=== PATIENT | male | born 1950 | race Caucasian/White ===

== ENCOUNTER → 2024-01-25 18:08 | Outpatient (REF) | payer MEDICARE, SELFPAY | LOC: MRI 3T 18:08 | PROVIDERS: ATTENDING PHYSICIAN Urology; FAMILY PHYSICIAN Internal Medicine | DX: R97.20 Elevated prostate specific antigen [PSA] (principal) | CPT/HCPCS: 72197; A9575 ==

== ENCOUNTER → 2024-02-08 14:52 | Outpatient (REF) | payer MEDICARE, SELFPAY | LOC: CLAB 14:52 | PROVIDERS: ATTENDING PHYSICIAN Urology | DX: R97.20 Elevated prostate specific antigen [PSA] (principal) | CPT/HCPCS: 88305 ==

== ENCOUNTER → 2024-04-19 08:15 | Outpatient (REF) | payer MEDICARE, SELFPAY ==
[2024-04-19 11:21] LABS: PSA, Total - Diagnostic 6.96 ng/ml (0.0-4.0)
== END ==
LOC: REG 08:15
PROVIDERS: ATTENDING PHYSICIAN Radiology Radiation Oncology; FAMILY PHYSICIAN Internal Medicine; OTHER PHYSICIAN Physical Medicine & Rehabilitation; REFERRING PHYSICIAN Urology
DX: C61 Malignant neoplasm of prostate (principal)
CPT/HCPCS: 36415; 84153; 84403

== ENCOUNTER → 2024-05-26 08:15 | Outpatient (REF) | payer MEDICARE, SELFPAY ==
[2024-05-26 09:54] LABS: Testosterone, Total 25.7 ng/dl (72-623)
== END ==
LOC: REG 08:15
PROVIDERS: ATTENDING PHYSICIAN Urology; FAMILY PHYSICIAN Internal Medicine
DX: R97.20 Elevated prostate specific antigen [PSA] (principal); C61 Malignant neoplasm of prostate
CPT/HCPCS: 36415; 84403

== ENCOUNTER → 2024-09-15 08:29 | Outpatient (REF) | payer MEDICARE, SELFPAY ==
[2024-09-15 10:13] LABS: PSA, Total - Diagnostic < 0.06 ng/ml (0.0-4.0)
== END ==
LOC: REG 08:29
PROVIDERS: ATTENDING PHYSICIAN Radiology Radiation Oncology; FAMILY PHYSICIAN Internal Medicine; OTHER PHYSICIAN Physical Medicine & Rehabilitation; OTHER PHYSICIAN Urology; REFERRING PHYSICIAN Radiology Radiation Oncology
DX: C61 Malignant neoplasm of prostate (principal)
CPT/HCPCS: 36415; 84153

== ENCOUNTER → 2024-10-06 08:26 | Outpatient (REF) | payer MEDICARE, SELFPAY ==
[2024-10-06 10:33] LABS: % Basophils 0.6 % (0-2); % Eosinophils 1.6 % (0-6); % Immature Granulocytes 0.3 % (0-0.5); % Lymphocytes 12.9 % (20.5-51.1); % Monocytes 13.5 % (1.7-9.3); % Neutrophils 71.1 % (42.2-75.2); Absolute Eosinophils 0.1 10^3/uL (0-0.7); Absolute Lymphocytes 0.4 10^3/uL (1.2-3.4); Absolute Monocytes 0.4 10^3/uL (0.1-0.6); Absolute Neutrophils 2.3 10^3/uL (1.4-6.5); Hematocrit 36.1 % (39.0-52.0); Mean Corp Hgb Conc. 33.2 g/dL (33.0-37.0); Mean Corpuscular Hgb 30.9 pg (27.0-31.0); Nucleated Red Blood Cells % 0 % (-); Platelet Count 204 10^3/uL (130-400); Red Blood Cell Count 3.88 10^6/uL (4.70-6.10); Red Cell Dist. Width 12.5 % (11.5-14.5); White Blood Cell Count 3.2 10^3/uL (4.8-10.8)
[2024-10-06 10:34] LABS: Urine Albumin Negative (Neg - Trace); Urine Bilirubin Negative (Negative); Urine Character Clear (Clear); Urine Color Yellow; Urine Glucose Negative (Negative); Urine Ketone Negative (Negative); Urine Leukocyte Negative (Negative); Urine Nitrite Negative (Negative); Urine Occult Blood Negative (Negative); Urine Urobilinogen Negative (Neg - 1+)
[2024-10-06 10:55] LABS: Glycohemoglobin (HgbA1c) 5.7 % (4.0-5.6)
[2024-10-06 11:15] LABS: ALT (SGPT) 17 U/L (0-50); AST (SGOT) 45 U/L (17-59); Albumin 3.9 g/dl (3.5-5.0); Alkaline Phosphatase 49 U/L (38-126); Blood Urea Nitrogen 21 mg/dl (9-20); Calcium 8.7 mg/dl (8.4-10.2); Carbon Dioxide 27 mmol/L (22-30); Chloride 102 mmol/L (98-107); Glucose 93 mg/dl (70-99); HDL Cholesterol 92 mg/dl; LDL Cholesterol, Calculated 101 mg/dl; Potassium 4.6 mmol/L (3.5-5.1); Sodium 138 mmol/L (135-145); Total Bilirubin 0.6 mg/dl (0.2-1.3); Total Cholesterol 208 mg/dl (50-199); Total Protein 6.3 g/dl (6.3-8.2); Triglyceride 75 mg/dl (10-149); Very Low Density Lipoprotein 15 mg/dl (0-30); eGFR > 60.00
== END ==
LOC: REG 08:26
PROVIDERS: ATTENDING PHYSICIAN Internal Medicine; REFERRING PHYSICIAN Urology
DX: Z00.00 Encounter for general adult medical examination without abnormal findings (principal); N31.9 Neuromuscular dysfunction of bladder, unspecified; E78.5 Hyperlipidemia, unspecified; R73.03 Prediabetes; N40.1 Benign prostatic hyperplasia with lower urinary tract symptoms; Z87.828 Personal history of other (healed) physical injury and trauma
CPT/HCPCS: 36415; 80053; 80061; 81003; 83036; 85025

== ENCOUNTER → 2024-10-30 08:20 | Outpatient (REF) | payer MEDICARE, SELFPAY ==
[2024-10-30 19:10] LABS: Testosterone, Total 11.9 ng/dl (72-623)
== END ==
LOC: REG 08:20
PROVIDERS: ATTENDING PHYSICIAN Urology
DX: R97.20 Elevated prostate specific antigen [PSA] (principal); C61 Malignant neoplasm of prostate
CPT/HCPCS: 36415; 84403

== ENCOUNTER → 2024-11-09 11:16 | Outpatient (REF) | payer MEDICARE, SELFPAY ==
[2024-11-09 13:35] LABS: HDL Cholesterol 90 mg/dl; LDL Cholesterol, Calculated 92 mg/dl; Total Cholesterol 198 mg/dl (50-199); Triglyceride 80 mg/dl (10-149); Very Low Density Lipoprotein 16 mg/dl (0-30)
== END ==
LOC: REG 11:16
PROVIDERS: ATTENDING PHYSICIAN Internal Medicine
DX: Z00.00 Encounter for general adult medical examination without abnormal findings (principal); N31.9 Neuromuscular dysfunction of bladder, unspecified; E78.5 Hyperlipidemia, unspecified; R73.03 Prediabetes; N40.1 Benign prostatic hyperplasia with lower urinary tract symptoms; Z87.828 Personal history of other (healed) physical injury and trauma
CPT/HCPCS: 36415; 80061

== ENCOUNTER → 2024-11-14 11:02 | Outpatient (REF) | payer MEDICARE, SELFPAY ==
[2024-11-14 11:47] LABS: % Basophils 0.2 % (0-2); % Immature Granulocytes 0.3 % (0-0.5); % Lymphocytes 8.4 % (20.5-51.1); % Monocytes 9.6 % (1.7-9.3); % Neutrophils 80.5 % (42.2-75.2); Absolute Eosinophils 0.1 10^3/uL (0-0.7); Absolute Lymphocytes 0.5 10^3/uL (1.2-3.4); Absolute Monocytes 0.6 10^3/uL (0.1-0.6); Absolute Neutrophils 4.7 10^3/uL (1.4-6.5); Hematocrit 34.8 % (39.0-52.0); Hemoglobin 11.5 g/dL (13.0-18.0); Mean Corpuscular Hgb 30.5 pg (27.0-31.0); Mean Corpuscular Volume 92.3 fL (80.0-94.0); Mean Platelet Volume 11.1 fL (7.4-10.4); Nucleated Red Blood Cells % 0 % (-); Platelet Count 209 10^3/uL (130-400); Red Blood Cell Count 3.77 10^6/uL (4.70-6.10); White Blood Cell Count 5.8 10^3/uL (4.8-10.8)
[2024-11-14 12:54] LABS: Iron 112 ug/dl (49-181)
[2024-11-14 13:04] LABS: Percent Saturation 33 % (20-50); Total Iron Binding Capacity 339 ug/dl (261-462)
[2024-11-14 14:52] LABS: Ferritin 40.2 ng/ml (17.9-464.0)
== END ==
LOC: REG 11:02
PROVIDERS: ATTENDING PHYSICIAN Internal Medicine; OTHER PHYSICIAN Urology
DX: D64.9 Anemia, unspecified (principal)
CPT/HCPCS: 36415; 82728; 83540; 83550; 85025

== ENCOUNTER → 2025-01-01 11:58 | Outpatient (REF) | payer MEDICARE, SELFPAY ==
[2025-01-01 12:38] LABS: % Basophils 0.2 % (0-2); % Eosinophils 0.8 % (0-6); % Immature Granulocytes 0.5 % (0-0.5); % Lymphocytes 7.8 % (20.5-51.1); % Monocytes 9.8 % (1.7-9.3); % Neutrophils 80.9 % (42.2-75.2); Absolute Eosinophils 0.1 10^3/uL (0-0.7); Absolute Lymphocytes 0.5 10^3/uL (1.2-3.4); Absolute Monocytes 0.6 10^3/uL (0.1-0.6); Absolute Neutrophils 4.8 10^3/uL (1.4-6.5); Hematocrit 35.5 % (39.0-52.0); Hemoglobin 11.8 g/dL (13.0-18.0); Mean Corp Hgb Conc. 33.2 g/dL (33.0-37.0); Mean Corpuscular Hgb 30.8 pg (27.0-31.0); Mean Corpuscular Volume 92.7 fL (80.0-94.0); Mean Platelet Volume 11.4 fL (7.4-10.4); Nucleated Red Blood Cells % 0 % (-); Platelet Count 207 10^3/uL (130-400); Red Blood Cell Count 3.83 10^6/uL (4.70-6.10); Reticulocyte Count 1.7 % (0.4-2.8)
[2025-01-01 13:30] LABS: Erythrocyte Sed Rate 16 mm/hour (0-20)
== END ==
LOC: REG 11:58
PROVIDERS: ATTENDING PHYSICIAN Internal Medicine
DX: D64.9 Anemia, unspecified (principal)
CPT/HCPCS: 36415; 85025; 85045; 85652

== ENCOUNTER → 2025-02-08 11:06 | Outpatient (REF) | payer MEDICARE, SELFPAY ==
[2025-02-08 12:32] LABS: % Basophils 0.2 % (0-2); % Eosinophils 0.9 % (0-6); % Immature Granulocytes 0.2 % (0-0.5); % Lymphocytes 10.5 % (20.5-51.1); % Monocytes 11.4 % (1.7-9.3); % Neutrophils 76.8 % (42.2-75.2); Absolute Eosinophils 0.1 10^3/uL (0-0.7); Absolute Lymphocytes 0.6 10^3/uL (1.2-3.4); Absolute Monocytes 0.6 10^3/uL (0.1-0.6); Absolute Neutrophils 4.2 10^3/uL (1.4-6.5); Hemoglobin 11.6 g/dL (13.0-18.0); Mean Corp Hgb Conc. 34.1 g/dL (33.0-37.0); Mean Corpuscular Hgb 31.4 pg (27.0-31.0); Mean Corpuscular Volume 91.9 fL (80.0-94.0); Mean Platelet Volume 11.7 fL (7.4-10.4); Nucleated Red Blood Cells % 0 % (-); Platelet Count 198 10^3/uL (130-400); Red Cell Dist. Width 13.1 % (11.5-14.5); White Blood Cell Count 5.4 10^3/uL (4.8-10.8)
== END ==
LOC: REG 11:06
PROVIDERS: ATTENDING PHYSICIAN Internal Medicine; OTHER PHYSICIAN Urology
DX: D64.9 Anemia, unspecified (principal)
CPT/HCPCS: 36415; 85025

== ENCOUNTER → 2025-03-09 10:53 | Outpatient (REF) | payer MEDICARE, SELFPAY ==
[2025-03-09 13:23] LABS: PSA, Total - Diagnostic < 0.06 ng/ml (0.0-4.0)
== END ==
LOC: REG 10:53
PROVIDERS: ATTENDING PHYSICIAN Urology; FAMILY PHYSICIAN Internal Medicine
DX: R97.20 Elevated prostate specific antigen [PSA] (principal); C61 Malignant neoplasm of prostate
CPT/HCPCS: 36415; 84153

== ENCOUNTER 2025-03-20 16:36 | Inpatient (IN) | payer MEDICARE, SELFPAY ==
[2025-03-20] VITALS (11 sets, daily range): BP systolic 106–144; BP diastolic 73–103; BMI 26.3
[2025-03-20 13:00] LABS: % Basophils 0.3 % (0-2); % Eosinophils 1.4 % (0-6); % Immature Granulocytes 0.2 % (0-0.5); % Lymphocytes 13.1 % (20.5-51.1); % Monocytes 11.1 % (1.7-9.3); % Neutrophils 73.9 % (42.2-75.2); Absolute Eosinophils 0.1 10^3/uL (0-0.7); Absolute Lymphocytes 0.8 10^3/uL (1.2-3.4); Absolute Monocytes 0.6 10^3/uL (0.1-0.6); Absolute Neutrophils 4.3 10^3/uL (1.4-6.5); Hematocrit 41.5 % (39.0-52.0); Hemoglobin 13.9 g/dL (13.0-18.0); Mean Corp Hgb Conc. 33.5 g/dL (33.0-37.0); Mean Corpuscular Volume 92.4 fL (80.0-94.0); Mean Platelet Volume 11.2 fL (7.4-10.4); Nucleated Red Blood Cells % 0 % (-); Platelet Count 269 10^3/uL (130-400); Red Blood Cell Count 4.49 10^6/uL (4.70-6.10); Red Cell Dist. Width 12.8 % (11.5-14.5); White Blood Cell Count 5.8 10^3/uL (4.8-10.8)
--- NOTE | 2025-03-20 13:11 | ED.GENMED ---
History of Present Illness
<Albino Devlin PA-C - Last Filed: 03/20/25 16:07>
General
Chief Complaint: Heart Rate Problem
Source: patient
Exam Limitations: none
Time Seen by Provider: 03/20/25 13:07
History of Present Illness
History of Present Illness:
75-year-old male presents in referral from family doctor's office. He woke up this morning and his Fitbit alerted him of a fast heart rate. He went to the family doctor and I did an EKG and he was suspected to have SVT. He tried vagal maneuvers
prior to arrival and these were unsuccessful. Is never had this before. Patient has no chest pain or shortness of breath. He is not lightheaded. He is not anticoagulated. Of note patient did return 2 weeks ago from a trip to [facility] and
[facility].
Phy Exam
<Albino Devlin PA-C - Last Filed: 03/20/25 16:07>
Physical Exam
Physical Exam:
General: Well-appearing male no acute respiratory distress
HEENT: Normocephalic atraumatic heart: Tachycardic and regular
Lungs: Clear no wheeze
Extremities: Mild pitting edema bilateral lower extremities
Course
<Albino Devlin PA-C - Last Filed: 03/20/25 16:07>
Orders/Labs/Results
Orders:
Orders
03/20/25
Electrocardiogram (*1) Stat
Comment: DONE EMR
03/20/25 12:40
ECG [Electrocardiogram (*1)] Urgent
Reason for Study: Tachycardia
EKG- Treatment ONCE
03/20/25 12:49
Complete Blood Count/With Diff Urgent
Comprehensive Metabolic Panel Urgent
TSH Reflex To Free T4 Urgent
03/20/25 13:08
Adenosine [Adenocard] 6 mg IV NOW STA
03/20/25 13:24
Adenosine [Adenocard] 12 mg .ROUTE .STK-MED ONE
Adenosine [Adenocard] 12 mg IV NOW STA
03/20/25 13:27
Diltiazem HCl [Cardizem] 20 mg IV NOW STA
03/20/25 14:20
CT Chest PE Study Urgent
Comment:
Reason For Exam: tachycardia, recent travel
03/20/25 14:53
Metoprolol [Lopressor] 5 mg IV NOW STA
03/20/25 16:12
Diltiazem HCl [Cardizem] 20 mg IV NOW STA
03/20/25 16:15
Diltiazem 125 mg/125 ml Nss [Cardizem] 125 mg in 125 ml IV PER PROTOCOL
Initial dose in mg/hr, then titrate:: 5
Titrate to keep:: Heart rate 80-100 bpm
Titrate by mg/hr:: 5 mg/hr
Frequency of titrations (minutes):: 15
Maximum dose in mg/hr:: 15
Abnormal Lab Results
03/20/25
12:49
RBC 4.49 L 10^6/uL
(4.70-6.10)
MPV 11.2 H fL
(7.4-10.4)
Absolute Lymphs (auto) 0.8 L 10^3/uL
(1.2-3.4)
Lymphocytes % 13.1 L %
(20.5-51.1)
Monocytes % 11.1 H %
(1.7-9.3)
Glucose 113 H mg/dl
(70-99)
03/20/25 12:49
03/20/25 12:49
Vital Signs
Initial and Last Documented VS:
Initial Vital Signs
Temp Pulse Resp BP Pulse Ox
97.8 F 172 18 114/81 96
03/20/25 12:43 03/20/25 12:43 03/20/25 12:43 03/20/25 12:43 03/20/25 12:43
Last Documented Vital Signs
Temp Pulse Resp BP Pulse Ox
97.8 F 153 23 123/86 95
03/20/25 12:43 03/20/25 16:00 03/20/25 16:00 03/20/25 16:00 03/20/25 15:45
<Cynthia Stone, DO - Last Filed: 03/20/25 16:16>
Orders/Labs/Results
Orders:
Orders
03/20/25
Electrocardiogram (*1) Stat
Comment: DONE EMR
03/20/25 12:40
ECG [Electrocardiogram (*1)] Urgent
Reason for Study: Tachycardia
EKG- Treatment ONCE
03/20/25 12:49
Complete Blood Count/With Diff Urgent
Comprehensive Metabolic Panel Urgent
TSH Reflex To Free T4 Urgent
03/20/25 13:08
Adenosine [Adenocard] 6 mg IV NOW STA
03/20/25 13:24
Adenosine [Adenocard] 12 mg .ROUTE .STK-MED ONE
Adenosine [Adenocard] 12 mg IV NOW STA
03/20/25 13:27
Diltiazem HCl [Cardizem] 20 mg IV NOW STA
03/20/25 14:20
CT Chest PE Study Urgent
Comment:
Reason For Exam: tachycardia, recent travel
03/20/25 14:53
Metoprolol [Lopressor] 5 mg IV NOW STA
03/20/25 16:12
Diltiazem HCl [Cardizem] 20 mg IV NOW STA
03/20/25 16:15
Diltiazem 125 mg/125 ml Nss [Cardizem] 125 mg in 125 ml IV PER PROTOCOL
Initial dose in mg/hr, then titrate:: 5
Titrate to keep:: Heart rate 80-100 bpm
Titrate by mg/hr:: 5 mg/hr
Frequency of titrations (minutes):: 15
Maximum dose in mg/hr:: 15
Abnormal Lab Results
03/20/25
12:49
RBC 4.49 L 10^6/uL
(4.70-6.10)
MPV 11.2 H fL
(7.4-10.4)
Absolute Lymphs (auto) 0.8 L 10^3/uL
(1.2-3.4)
Lymphocytes % 13.1 L %
(20.5-51.1)
Monocytes % 11.1 H %
(1.7-9.3)
Glucose 113 H mg/dl
(70-99)
03/20/25 12:49
03/20/25 12:49
Vital Signs
Initial and Last Documented VS:
Initial Vital Signs
Temp Pulse Resp BP Pulse Ox
97.8 F 172 18 114/81 96
03/20/25 12:43 03/20/25 12:43 03/20/25 12:43 03/20/25 12:43 03/20/25 12:43
Last Documented Vital Signs
Temp Pulse Resp BP Pulse Ox
97.8 F 153 23 123/86 95
03/20/25 12:43 03/20/25 16:00 03/20/25 16:00 03/20/25 16:00 03/20/25 15:45
<Albino Devlin PA-C - Last Filed: 03/20/25 16:07>
MDM/Problems Addressed
Differential Diagnosis Includes:
Patient presents with rapid heart rate at home. EKG here consistent with a narrow complex regular tachycardia suspicious of SVT.
Blood pressure is stable he has no complaints otherwise. Will try adenosine.
<Albino Devlin PA-C - Last Filed: 03/20/25 16:07>
*Critical Care Note
Total Time (30-74mins, 75-104mins- exclusive of procedures): Not Applicable
<Cynthia Stone DO - Last Filed: 03/20/25 16:16>
*Critical Care Note
Total Time (30-74mins, 75-104mins- exclusive of procedures): 42
comment:
The high probability of a clinically significant, sudden or life threatening deterioration of the cardiac system(s) required my full and direct attention, intervention and personal management. The aggregate critical care time was 42 minutes. This
time is in addition to time spent performing reported procedures but includes the following:
[x] Data Review and interpretation
[x] Patient assessment and monitoring of vital signs
[x] Documentation
[x] Medication orders and management
<Albino Devlin PA-C - Last Filed: 03/20/25 16:07>
Update Note
Update Note:
Patient persistent bleed tachycardic here. He had dose of adenosine x 2 as well as diltiazem bolus was seen by cardiology, electrophysiology. PE study was negative. Suspect SVT versus atrial tachycardia. Will admit for diltiazem drip and further
evaluation
ED Attending Note
<Albino Devlin PA-C - Last Filed: 03/20/25 16:07>
-
Portions of this chart may have been created with voice recognition software.� Occasional wrong word or��sound alike� substitutions may have occurred due to the inherent limitations of voice recognition software.
<Cynthia Stone DO - Last Filed: 03/20/25 16:16>
ED Attending Note
Patient seen and examined by attending physician: Yes
I performed the substantive portion of visit, reviewed & personally made and approve the management plan that is documented in note by myself or CASEY.: Yes
I performed a history and physical exam of patient and discussed management with resident, I reviewed resident's note and agree with documented findings and plan of care.: Yes
ED Attending Note:
75-year-old male presenting from home for elevated heart rate. Patient wears a Fitbit and noticed on his Fitbit that his heart rate was in the 160s. Patient sent in by his primary care doctor. Patient is relatively asymptomatic without
palpitations, difficulty breathing. Denies any history of A-fib or irregular heart rhythms. Denies any associated dyspnea or chest pain. Denies fever or recent illness. Vital signs on arrival significant for tachycardia.
On exam patient is resting comfortably, no acute distress or discomfort. Heart rate does appear consistent with SVT, regular in the 160s, confirmed with EKG. Otherwise unremarkable cardiac and pulmonary exam. Plan for adenosine
13:30 - No success with adenosine x 2. Will trial Cardizem for possible underlying a flutter
14:00 -minimal improvement after Cardizem. In discussion with cardiology, will come evaluate. Patient did recently travel abroad and does have underlying history of prostate cancer, so we will also plan for PE study
16:00 -PE study negative. Cardiology recommending diltiazem drip and admission. Suspect atrial tachycardia
Discharge Plan
Departure
Patient Disposition: Admit
Date of Disposition: 03/20/25
Time of Disposition: 16:06
Presentation/result/management discussed w/ accepting MD/DO: Hospitalist
Discharge Problem:
Atrial tachycardia
Referrals:
Wilfredo Avila MD [Family Provider] -
Interventions
Interventions:
*Risk Screen - Suicide Last Done: 03/20/25 12:43
*General Assessment Last Done: 03/20/25 12:43
*Neglect/Abuse Screening Last Done: 03/20/25 12:43
*ED- Fall Risk Assessment Last Done: 03/20/25 12:58
*ED COVID-19 Vaccine History Last Done: 03/20/25 12:43
ED- Cardiac Assessment Last Done: 03/20/25 12:58
ED- Pulmonary Assessment Last Done: 03/20/25 12:58
Discharge Date and Time
Print Language: COMORAN
[2025-03-20 13:16] LABS: ALT (SGPT) 17 U/L (0-50); AST (SGOT) 34 U/L (17-59); Albumin 4.3 g/dl (3.5-5.0); Alkaline Phosphatase 67 U/L (38-126); Blood Urea Nitrogen 16 mg/dl (9-20); Calcium 9.5 mg/dl (8.4-10.2); Carbon Dioxide 25 mmol/L (22-30); Chloride 103 mmol/L (98-107); Estimated Creatinine Clearance 85 ml/min; Glucose 113 mg/dl (70-99); Potassium 4.8 mmol/L (3.5-5.1); Sodium 137 mmol/L (135-145); Total Bilirubin 0.7 mg/dl (0.2-1.3); Total Protein 6.8 g/dl (6.3-8.2); eGFR > 60.00
[2025-03-20] MEDS: ADENOCARD 6 MG IV (13:20)
[2025-03-20] MEDS: ADENOCARD 12 MG IV (13:24)
[2025-03-20] MEDS: CARDIZEM 20 MG IV ×2 (13:30→16:22)
[2025-03-20 13:47] LABS: TSH Reflex To Free T4 1.11 uIU/ml (0.47-4.68)
[2025-03-20] MEDS: LOPRESSOR 5 MG IV (15:12)
--- NOTE | 2025-03-20 15:14 | CON.CAR ---
Addendum entered and electronically signed by Luis Felipe Reyes MD 03/20/25 16:31:
I saw and examined the patient.
The SIGNAL FITTER's note was reviewed and I agree with the note.
Comment: 75-year-old male with prostate cancer (completed XRT on Lupron), chronic back pain, prediabetes, neurogenic bladder, and severe DOMO who presented to the emergency room with a chief complaint of elevated heart rate. He was given 6 mg of
adenosine with a short sinus pause and then went back into SVT. The same situation occurred after 12 mg. He was then given 20 mg of diltiazem without success. Cardiology was consulted.
Discussed with EP, Dr Britt, possible a tach recommended dilt gtt.
a tach
- dilt gtt
Original Note:
Consultation
Consultation Request
Date/Time Consultation Requested: 03/20/2025 14:05
Date/Time Consultation Performed: 12/20/2024 14:25
Requesting Provider: Albino Devlin PA-C
Performing Provider: SUSAN Tovar for Dr. Reyes
Reason for Consultation: SVT
Medical History
-
Chief Complaint: Elevated heart rate
History of Present Illness:
Dylan Tay is a 75-year-old male with prostate cancer (completed XRT on Lupron), chronic back pain, prediabetes, neurogenic bladder, and severe DOMO who presented to the emergency room with a chief complaint of elevated heart rate. He noticed his
heart rate was elevated on his Fitbit this morning. He was asymptomatic. He tried vagal maneuvers at home without success. He presented to the emergency room. He has been feeling well in his usual state of health. He recently returned from a
trip to [facility] for several weeks. He did have 1 day of GI illness but otherwise felt well on the trip. He was given 6 mg of adenosine with a short sinus pause and then went back into SVT. The same situation occurred after 12 mg. He was then given
20 mg of diltiazem without success. Cardiology was consulted.
Past Medical History
Past Medical History: Cancer (Prostate) and Other (chronic back pain, prediabetes, neurogenic bladder, severe DOMO)
Past Surgical History: Orthopedic
Social History
Tobacco: Non-Smoker
Personal:
Living: With Family
Employment: Retired
Family History
Family History: Reviewed & Not Pertinent
Allergies / Home Medications
Allergy/AdvReac Type Severity Reaction Status Date / Time
No Known Allergies Allergy Verified 03/20/25 12:46
Review of Systems
-
History Source: Patient
All other systems: Negative unless noted
Constitutional: No Symptoms
EENT: No Symptoms
Respiratory: No Symptoms
Cardiac: No Symptoms
Abdomen/GI: No Symptoms
: No Symptoms
Musculoskeletal: No Symptoms
Skin: No Symptoms
Neurological: No Symptoms
Endocrine: No Symptoms
Hematologic/Lymphatic: No Symptoms
Physical Exam
Vital Signs
Temp Pulse Resp BP Pulse Ox
97.8 F 145 13 123/80 93
03/20/25 12:43 03/20/25 14:45 03/20/25 13:45 03/20/25 14:00 03/20/25 14:45
Lab Results
03/20/25 12:49
03/20/25 12:49
Physical Exam
General: Well Developed, Well Nourished and No Apparent Distress
HEENT: Normocephalic, Anicteric and Moist Mucous Membranes
Respiratory: Clear and Non Labored Respirations
Cardiac: S1/S2 and Regular Rhythm (Tachycardia)
Breast: Deferred by me
GI: Soft, Non Tender, Non Distended and Normal Bowel Sounds
Rectal: Deferred by Provider
Genito-urinary: No Costovertebral Tender
Musculoskeletal: No Clubbing, No Cyanosis and No Edema
Skin: Warm and Dry
Neuro: AO x 3
Hematologic/Lymphatic: No Lymphadenopathy
Psych: Calm
Impression / Plan
-
I/P: 75M with prostate cancer (completed XRT on Lupron), chronic back pain, prediabetes, neurogenic bladder, and severe DOMO who presented to the emergency room with a chief complaint of elevated heart rate
Outpatient kindergarten tutor: None prior to arrival
SVT
- Failed adenosine 6 mg, adenosine 12 mg, and diltiazem 20 mg
- Try Lopressor 5 mg
- May need to consider digoxin
Recent foreign travel, CT PE study negative
Prostate cancer, completed XRT, on Lupron
Severe DOMO follows with Dr. Salazar
Data Reviewed
-
EKG: Report Reviewed by me (SVT, nonspecific ST abnormality, rate 158)
CT Scan: Report Reviewed by me (Negative for PE as above)
Labs: Labs Reviewed by me
Old Records: Reviewed
[2025-03-20] MEDS: CARDIZEM 125 IV ×2 (16:23→20:00)
--- NOTE | 2025-03-20 16:27 | HPS.HSE ---
Family Physician
-
Family Physician: Wilfredo Avila
Chief Complaint
-
elevated heart rate
History of Present Illness
75-year-old male past medical history of prostate cancer status post radiation, chronic back pain, prediabetes, neurogenic bladder, severe obstructive sleep apnea presenting with elevated heart rate. Noticed elevated heart rate on Fitbit this
morning. No symptoms. He tried vagal maneuvers without success. He has been in his usual state of health. Recently returned from a trip to [facility] for several weeks. He had 1 day of GI illness on the trip but felt well.
He was given 6 mg of adenosine showed sinus pause and then went back into SVT. This also occurred with 12 mg. He was given 20 mg of diltiazem without success.
Father with heart conditions.
He did drink significantly on the vacation. Denies smoking.
Medical History
Past Medical History
Past Medical History: Reports Other (prostate cancer status post radiation, chronic back pain, prediabetes, neurogenic bladder, severe obstructive sleep apnea)
Past Surgical History: Reports None
Social History
Tobacco: Non-smoker
Alcohol: None
Drug: None
Family History
Family History: Not pertinent
Allergies / Home Medications
Allergies reflects when Allergies were last updated in [facility].
Home Medications with original date entered in [facility]
Allergy/Medication List:
Allergies
Allergy/AdvReac Type Severity Reaction Status Date / Time
No Known Allergies Allergy Verified 03/20/25 12:46
Review of Systems
-
History Source: Patient
A 12 point ROS was completed and negative except as noted: Yes
Constitutional: Reports No Symptoms
EENT: Reports No Symptoms
Respiratory: Reports No Symptoms
Cardiac: Reports No Symptoms
Abdomen/GI: Reports No Symptoms
: Reports No Symptoms
Musculoskeletal: Reports No Symptoms
Skin: Reports No Symptoms
Neurological: Reports No Symptoms
Endocrine: Reports No Symptoms
Hematologic/Lymphatic: Reports No Symptoms
Psych: Reports No Symptoms
Physical Exam
Vital Signs
Vital Signs
Temp Pulse Resp BP Pulse Ox
97.8 F 153 23 123/86 95
03/20/25 12:43 03/20/25 16:00 03/20/25 16:00 03/20/25 16:00 03/20/25 15:45
Physical Exam
General: Well Developed, Well Nourished and No Apparent Distress
HEENT: NormoCephalic, Moist mucous membranes and Atraumatic
Respiratory: Clear
Cardiac: S1/S2 and Regular Rhythm; No Murmur or Rub
GI: Soft, Non Tender, Non Distended and Normal Bowel Sounds; No Organomegaly
Rectal: Deferred by Provider
Musculoskeletal: No Clubbing, No Cyanosis and No Edema
Skin: No Rash
Neuro: Nonfocal/grossly intact
Laboratory Results
-
03/20/25 12:49
03/20/25 12:49
Laboratory Results
Total Bilirubin 0.7 mg/dl (0.2-1.3) 03/20/25 12:49
AST 34 U/L (17-59) 03/20/25 12:49
ALT 17 U/L (0-50) 03/20/25 12:49
Alkaline Phosphatase 67 U/L (38-126) 03/20/25 12:49
Data Reviewed
-
Lab Data: Labs Reviewed by me
Old Records: Reviewed
Impression/Plan
-
IMPRESSION:
PLAN:
# SVT
- Failed adenosine 6 mg, 12 mg and diltiazem 20 mg with heart rate 140s
-CT chest shows no pulmonary embolism
- Cardizem drip
-Cardiology consulted
-Possible EP evaluation if no response
Severe obstructive sleep apnea
- Does not use CPAP
Prostate cancer status post radiation
Chronic back pain
Prediabetes
Neurogenic bladder
Full code
DVT prophylaxis�heparin
Regular diet
--- NOTE | 2025-03-20 17:02 | W.PN.UPDATE ---
Update Note
Progress Note Update
Called back to see patient. He is having sinus pauses. Diltiazem drip stopped.
Keep drip on hold unless heart rate is greater than 100 bpm.
He remains asymptomatic.
Dr. Britt updated. Patient will be re-evaluated by EP in a.m. May require inpatient ablation on .
--- NOTE | 2025-03-20 19:52 | W.PN.UPDATE ---
Update Note
Progress Note Update
RN reports HR in 140s with resting irregular, 114/91 98.3, patient seen at the bedside, asymptomatic, denies shortness of breath, denies chest pain or palpitation. Will restart Cardizem drip @5mg/hour with bolus of 10mg x1 now.
[2025-03-20] MEDS: CARDIZEM 10 MG IV (19:59)
[2025-03-20] MEDS: HEPARIN 5000 UNITS SC (20:00)
--- NOTE | 2025-03-20 20:00 | PTCARENOTE ---
Patient arrived on unit at change of shift. Patient ambulated from stretcher to bed without incident. However upon attaching patient to monitor found to have HR in 170s with activity 150s at rest. Patient denied any associated symptoms. Advised
patient to refrain from any activity until HR issues resolved and if activity necessary to use call bella for assistance. Patient assessed, oriented to room, and informed of plan of care. Notified ORTHO NURSE that HR was still elevated. Received orders for
IVP cardizem and to restart cardizem gtt. Call bella within reach.
[2025-03-21] VITALS (11 sets, daily range): BP systolic 98–142; BP diastolic 63–91; BMI 25.6
[2025-03-21 04:44] LABS: % Basophils 0.4 % (0-2); % Eosinophils 1.6 % (0-6); % Immature Granulocytes 0.2 % (0-0.5); % Lymphocytes 12.2 % (20.5-51.1); % Neutrophils 73.6 % (42.2-75.2); Absolute Eosinophils 0.1 10^3/uL (0-0.7); Absolute Lymphocytes 0.6 10^3/uL (1.2-3.4); Absolute Monocytes 0.6 10^3/uL (0.1-0.6); Absolute Neutrophils 3.7 10^3/uL (1.4-6.5); Hematocrit 43.9 % (39.0-52.0); Hemoglobin 14.7 g/dL (13.0-18.0); Mean Corp Hgb Conc. 33.5 g/dL (33.0-37.0); Mean Corpuscular Hgb 30.8 pg (27.0-31.0); Mean Corpuscular Volume 91.8 fL (80.0-94.0); Mean Platelet Volume 11.5 fL (7.4-10.4); Nucleated Red Blood Cells % 0 % (-); Platelet Count 255 10^3/uL (130-400); Red Blood Cell Count 4.78 10^6/uL (4.70-6.10); Red Cell Dist. Width 12.8 % (11.5-14.5)
[2025-03-21 05:16] LABS: ALT (SGPT) 15 U/L (0-50); AST (SGOT) 32 U/L (17-59); Albumin 4.2 g/dl (3.5-5.0); Alkaline Phosphatase 74 U/L (38-126); Blood Urea Nitrogen 12 mg/dl (9-20); Calcium 9.3 mg/dl (8.4-10.2); Carbon Dioxide 27 mmol/L (22-30); Chloride 106 mmol/L (98-107); Estimated Creatinine Clearance 85 ml/min; Glucose 99 mg/dl (70-99); Potassium 4.5 mmol/L (3.5-5.1); Sodium 142 mmol/L (135-145); Total Bilirubin 0.7 mg/dl (0.2-1.3); Total Protein 6.4 g/dl (6.3-8.2); eGFR > 60.00
[2025-03-21] MEDS: HEPARIN 5000 UNITS SC ×2 (07:52→19:52)
--- NOTE | 2025-03-21 08:02 | W.PN.CD ---
Today's Communication / Plan
-
- NPO after midnight
- Plan for EP study and ablation in AM
Impression / Plan
-
I/P: 75M with prostate cancer (completed XRT on Lupron), chronic back pain, prediabetes, neurogenic bladder, and severe DOMO who presented to the emergency room with a chief complaint of elevated heart rate
Outpatient manufacturing team member: None prior to arrival
SVT
- Atrial tachycardia antonia with a wobble in tachycardia noted.
- Long RP tachycardia that is incessantly present
- Adenosine 6 mg, adenosine 12 mg, and diltiazem 20 mg - broke the SVT each time but had almost immediate recurrence.
- Noted to have sick sinus with long sinus node recovery time leading to pauses with conversion.
- With more sinus rhythm noted the pauses are expected to narrow down
- Continue Diltiazem drip
- Now going in and out of AT - Possible PV source.
- Plan for EP study and ablation in AM
- NPO after midnight.
Recent foreign travel, CT PE study negative
Prostate cancer, completed XRT, on Lupron
Severe DOMO follows with Dr. Salazar
Physical Exam
Vital Signs/Labs
Vital Signs
Temp Pulse Resp BP Pulse Ox
97.6 F 73 18 135/79 96
03/21/25 06:46 03/21/25 07:30 03/21/25 06:46 03/21/25 06:48 03/21/25 06:46
03/20/25 03/21/25 03/22/25
06:59 06:59 06:59
Actual Weight 85.5 kg
03/21/25 03:50
03/21/25 03:50
Physical Exam
Constitutional: No acute distress and Comfortable
EENT: Anicteric and Moist mucous membranes
Cardiovascular: Rhythm & rate is regular, Pedal edema is absent and JVD pressure is normal
Respiratory: Respiratory effort normal, Lungs clear to auscul. and Wheeze Absent
GI: Soft, Non tender and Normal bowel sounds
Neuro/Psych: Alert, Oriented and AO x 3
Data Reviewed
-
Date of Service: March 21, 2025
Medical Decision Making: Reviewed Test Results, Independent Historian Assessment and Test Interpretation
EKG: Tracing Personally Visualized and interpreted
Labs: Labs Reviewed by me
Old Records: Reviewed
--- NOTE | 2025-03-21 10:13 | PTCARENOTE ---
Cardizem gtt running at 10mg/hr. The patient's Hr is fluctuating between AT, ST, and NSR with 2 second pause increasing in frequency. I decreased the Cardizem gtt to 5mg/hr. The patient is aaox3, his vital signs are stable. He has no complains of
SOB, dizziness, or palpations.
--- NOTE | 2025-03-21 11:29 | CM ---
Reviewed chart. Met with Mr. Tay to review discharge plans. He states prior to admission he resides with his spouse in a spilt-level home with three steps to enter. He states he has seven steps to enter get to each level. He states his
bedroom/full bathroom is on the upper floor. He states prior to admission he was independent with ambulation and adls. He states he does not have any DME in the home. He states he has a prescription plan and uses [facility]. Medical work-up in
progress. The discharge plan is to return home with his spouse when medically stable.
--- NOTE | 2025-03-21 14:03 | W.PN.HOSP.TC ---
Today's Communication/Plan
-
dilt ggt
ep study and ablation planned for tomorrow
Assessment / Plan
Assessment / Plan
Physical Exam
Constitutional: No acute distress and Comfortable
EENT: Anicteric and Moist mucous membranes
Cardiovascular: Rhythm & rate is regular, Pedal edema is absent and JVD pressure is normal
Respiratory: Respiratory effort normal, Lungs clear to auscul. and Wheeze Absent
GI: Soft, Non tender and Normal bowel sounds
Neuro/Psych: Alert, Oriented and AO x 3
PLAN:
# SVT
- Failed adenosine 6 mg, 12 mg and diltiazem 20 mg with heart rate 140s
-CT chest shows no pulmonary embolism
- Cardizem drip
-Cardiology consulted
-EP study and Ablation tomorrow
-ECHO - no regional wall motion abn, no valvular disease
Severe obstructive sleep apnea
- Does not use CPAP
Prostate cancer status post radiation
Chronic back pain
Prediabetes
Neurogenic bladder
Full code
DVT prophylaxis�heparin
Regular diet
Total time spent on today's encounter was 50 minutes which included time spent in counseling the patient/family regarding diagnosis and treatment plan as listed above, goals of care, and symptom management. Case was discussed with nursing staff,
specialists, and care coordinators/case management. All labs and imaging personally reviewed by me. Remainder the time spent in detailed review of previous records, lab data, imaging, and other medical provider documentation.
Anticipated Discharge: 24 - 48 hours
Subjective/Interval History
-
Date of Service: March 21, 2025
on dilt ggt
Objective Data
-
Labs:
Laboratory Results
03/21/25
03:50
WBC 5.0
Hgb 14.7
Hct 43.9
Plt Count 255
Sodium 142
Potassium 4.5
Chloride 106
Carbon Dioxide 27
BUN 12
Creatinine 0.8
Glucose 99
Calcium 9.3
Total Bilirubin 0.7
AST 32
ALT 15
Alkaline Phosphatase 74
Vital Signs:
Vital Signs
Temp Pulse Resp BP Pulse Ox
97.6 F 88 18 107/89 96
03/21/25 11:10 03/21/25 11:30 03/21/25 11:10 03/21/25 10:30 03/21/25 11:10
I&O
03/20/25 03/21/25 03/22/25
06:59 06:59 06:59
Intake Total 360 / 360
Output Total 1000 / 1000 300 / 300
Balance -1000 / -1000 60 / 60
Review of Systems
-
History Source: Patient
All other systems: Not reviewed unless documented
Data Reviewed
-
CT Scan: Report Reviewed by me
Medical Tests (Nuc Med, Echo etc): Report Reviewed by me
Labs: Labs Reviewed by me
[2025-03-21] MEDS: CARDIZEM 125 IV (15:33)
[2025-03-21] MEDS: LIORESAL 20 MG PO ×2 (15:33→21:50)
--- NOTE | 2025-03-21 21:00 | PTCARENOTE ---
Assumed care on pt, aaox3, irregular HR, SVT on the monitor with HR on the 160-170 when standing at bedside and asymptomatic, 70-100 resting in bed. Cardizem gtt infusing at 5mg/hr. VSS. Pt denies chest pain, palpitations or SOB. Call bella within
reach.
--- NOTE | 2025-03-21 21:10 | PTCARENOTE ---
Pt noted with sustained SVT rhythm on the monitor, HR 150's, when assessed pt asymptomatic. BP stable. Pox 95-98% RA. Pt c/o pain from R AC IV site where cardizem gtt was infusing which noted to be red and infiltrated. IV nurse called, advised to
apply ice to the infiltrated site and elevate it. New IV site to L FA. Cardizem gtt infusing at 5 mg/hr.
[2025-03-21] MEDS: DDAVP 0.3 MG PO (21:50)
[2025-03-22] VITALS (12 sets, daily range): BP systolic 105–149; BP diastolic 73–89; BMI 25.6
--- NOTE | 2025-03-22 04:55 | PTCARENOTE ---
Pt NPO since midnight, SR w/ runs of which appear SVT vs Atach, asymptomatic. BP stable overnight, cardizem gtt maintained at 5mg/hr.
[2025-03-22] MEDS: LIORESAL 20 MG PO ×3 (09:06→23:16)
[2025-03-22] MEDS: HEPARIN 5000 UNITS SC (09:06)
--- NOTE | 2025-03-22 10:14 | W.PN.CD ---
Today's Communication / Plan
-
- EP study and ablation today
Impression / Plan
-
I/P: 75M with prostate cancer (completed XRT on Lupron), chronic back pain, prediabetes, neurogenic bladder, and severe DOMO who presented to the emergency room with a chief complaint of elevated heart rate
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
SVT
- Atrial tachycardia antonia with a wobble in tachycardia noted.
- Long RP tachycardia that is incessantly present
- Adenosine 6 mg, adenosine 12 mg, and diltiazem 20 mg - broke the SVT each time but had almost immediate recurrence.
- Noted to have sick sinus with long sinus node recovery time leading to pauses with conversion.
- With more sinus rhythm noted the pauses are expected to narrow down
- Continue Diltiazem drip - hold now for the procedure
- ECHO 03/21/25 - LVEF 60% - normal echo.
- Now going in and out of AT - Possible PV source.
- Plan for EP study and ablation today
- NPO for now
- Hold Diltiazem drip for now.
Recent foreign travel, CT PE study negative
Prostate cancer, completed XRT, on Lupron
Severe DOMO follows with Dr. Salazar
Physical Exam
Vital Signs/Labs
Vital Signs
Temp Pulse Resp BP Pulse Ox
97.7 F 82 14 137/89 97
03/22/25 07:17 03/22/25 10:00 03/22/25 07:17 03/22/25 07:16 03/22/25 07:17
03/21/25 03/22/25 03/23/25
06:59 06:59 06:59
Actual Weight 85.5 kg 85.6 kg
Physical Exam
Constitutional: No acute distress and Comfortable
EENT: Anicteric and Moist mucous membranes
Cardiovascular: Rhythm & rate is regular, Pedal edema is absent and JVD pressure is normal
Respiratory: Respiratory effort normal, Lungs clear to auscul. and Crackles Absent
GI: Soft, Distention absent, Non tender and Normal bowel sounds
Neuro/Psych: Alert, Oriented and AO x 3
Data Reviewed
-
Date of Service: March 22, 2025
Medical Decision Making: Reviewed Test Results, Test Interpretation and Review of Case with other Provider
EKG: Tracing Personally Visualized and interpreted
Labs: Labs Reviewed by me
Old Records: Reviewed
[2025-03-22 10:45] LABS: Hematocrit 41.5 % (39.0-52.0); Hemoglobin 14.2 g/dL (13.0-18.0); Mean Corp Hgb Conc. 34.2 g/dL (33.0-37.0); Mean Corpuscular Hgb 30.9 pg (27.0-31.0); Mean Corpuscular Volume 90.2 fL (80.0-94.0); Mean Platelet Volume 10.8 fL (7.4-10.4); Platelet Count 239 10^3/uL (130-400); White Blood Cell Count 7.2 10^3/uL (4.8-10.8)
--- NOTE | 2025-03-22 11:59 | PTCARENOTE ---
Rec'd pt at handoff. Tele- SR w/ runs SVT/atach; asymptomatic. Pt has no complaints at this time. Assessment completed as documented. Pt has been NPO since midnight for ablation today. Plan of care reviewed w/ pt and verbalizes understanding.
Currently in bed; call jena w/in reach.
[2025-03-22 12:02] LABS: Blood Urea Nitrogen 17 mg/dl (9-20); Calcium 9.1 mg/dl (8.4-10.2); Carbon Dioxide 22 mmol/L (22-30); Chloride 106 mmol/L (98-107); Estimated Creatinine Clearance 97 ml/min; Glucose 113 mg/dl (70-99); Potassium 4.4 mmol/L (3.5-5.1); Sodium 137 mmol/L (135-145); eGFR > 60.00
--- NOTE | 2025-03-22 14:13 | CM ---
Reviewed chart. Mr. Tay is having an ablation today. Prior to admission he resides with his spouse in a spilt level with three steps to enter. He has seven steps to enter. His bedroom/full bathroom are on the first floor. He was independent
with ambulation and adls. He does not have any DME in the home. He has a prescription plan and uses [facility]. Medical work-up in progress. The discharge plan is to return home with his spouse when medically stable.
--- NOTE | 2025-03-22 14:27 | W.PN.HOSP.TC ---
Today's Communication/Plan
-
ep study and ablation
Assessment / Plan
Assessment / Plan
Physical Exam
Constitutional: No acute distress and Comfortable
EENT: Anicteric and Moist mucous membranes
Cardiovascular: Rhythm & rate is regular, Pedal edema is absent and JVD pressure is normal
Respiratory: Respiratory effort normal, Lungs clear to auscul. and Wheeze Absent
GI: Soft, Non tender and Normal bowel sounds
Neuro/Psych: Alert, Oriented and AO x 3
PLAN:
# SVT
- Failed adenosine 6 mg, 12 mg and diltiazem 20 mg with heart rate 140s
-CT chest shows no pulmonary embolism
- Cardizem drip
-Cardiology consulted
-EP study and Ablation today
-ECHO - no regional wall motion abn, no valvular disease; EF 60%
Severe obstructive sleep apnea
- Does not use CPAP
Prostate cancer status post radiation
Chronic back pain
Prediabetes
Neurogenic bladder
Full code
DVT prophylaxis�heparin
Regular diet
Total time spent on today's encounter was 51 minutes which included time spent in counseling the patient/family regarding diagnosis and treatment plan as listed above, goals of care, and symptom management. Case was discussed with nursing staff,
specialists, and care coordinators/case management. All labs and imaging personally reviewed by me. Remainder the time spent in detailed review of previous records, lab data, imaging, and other medical provider documentation.
Anticipated Discharge: 24 - 48 hours
Subjective/Interval History
-
Date of Service: March 22, 2025
no acute events
Objective Data
-
Labs:
Laboratory Results
03/22/25
10:29
WBC 7.2
Hgb 14.2
Hct 41.5
Plt Count 239
Sodium 137
Potassium 4.4
Chloride 106
Carbon Dioxide 22
BUN 17
Creatinine 0.7
Glucose 113 H
Calcium 9.1
Vital Signs:
Vital Signs
Temp Pulse Resp BP Pulse Ox
97.9 F 78 20 141/76 97
03/22/25 11:22 03/22/25 11:30 03/22/25 11:22 03/22/25 11:23 03/22/25 11:22
I&O
03/21/25 03/22/25 03/23/25
06:59 06:59 06:59
Intake Total 1140 / 1140
Output Total 1000 / 1000 1150 / 1150 250 / 250
Balance -1000 / -1000 -10 / -10 -250 / -250
Review of Systems
-
History Source: Patient
All other systems: Not reviewed unless documented
Data Reviewed
-
CT Scan: Report Reviewed by me
Medical Tests (Nuc Med, Echo etc): Report Reviewed by me
Labs: Labs Reviewed by me
[2025-03-22 15:11] LABS: ACT-LR - POC 329 Seconds (116-155)
[2025-03-22 15:41] LABS: ACT-LR - POC 337 Seconds (116-155)
[2025-03-22 16:01] LABS: ACT-LR - POC 308 Seconds (116-155)
[2025-03-22 16:19] LABS: ACT-LR - POC 331 Seconds (116-155)
[2025-03-22 16:35] LABS: ACT-LR - POC 395 Seconds (116-155)
[2025-03-22 17:06] LABS: ACT-LR - POC 331 Seconds (116-155)
--- NOTE | 2025-03-22 17:44 | ITS.CL.ABL ---
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
Ablation
Procedure Report:
AFIB ablation:
Mr. Tay is a very pleasant 75 yr old gentleman with medical history significant for symptomatic incessant tachycardia, regular and narrow QRS that is difficult to control with various cycle lengths with wobble consistent with atrial tachycardia
with difficult to control rhythm and is recommended rhythm control and is here in the EP lab for SVT / atrial fibrillation ablation
Date of Procedure:
03/22/2025
Indications:
Incessant tachycardia
Pre-Operative Diagnosis:
supra ventricular tachycardia
Post-Operative Diagnosis:
Atrial flutter / Atrial fibrillation / atrial tachycardia x4
Procedure Performed:
Atrial fibrillation ablation with pulmonary vein isolation
Roof line formation for atypical roof dependent atrial flutter
Posterior wall isolation ablation
Focal atrial tachycardia anterior wall of left atrium ablation
Mitral flutter ablation with anterior line of block formation
Left atrial septal wall atrial tachycardia ablation
Right atrial septal tachycardia ablation
Right atrial anterior wall tachycardia ablation
Maria Guadalupe terminalis tachycardia ablation
Biatrial tachycardia ablation
Performing Physician:
Nicolle Britt MD
Assistants:
EP staff
Anesthesia:
See anesthesia records
Detailed Description of the Procedure:
Written informed consent was obtained from the patient after a full explanation of the risks and benefits of the procedure including the risks of sedation and anesthesia.
The patient was brought to the electrophysiology laboratory in stable condition in fasting state. Continuous electrocardiographic and hemodynamic monitoring was initiated.
The initial rhythm was supra ventricular tachycardia.
The procedure site was meticulously prepared with surgical scrub and allowed to dry with no pooling. Sterile draping was applied to cover the procedure site. The image intensifier was draped with sterile bag and positioned over the patient. After
infusion of local anesthetic, vascular access was obtained under ultrasound guidance and sheaths were placed over guide wire as detailed below.
Sheath and Catheter Placement:
In the right femoral vein, an 8-South African sheath was placed for use during the ablation procedure. A second 9-Fr sheath was placed for use during intracardiac echo procedure.
The sheaths were upgraded as needed during the case. Intracardiac catheters were positioned using direct fluoroscopic guidance.� ICE catheter was placed in RA. The following catheters / sheaths were placed
Sheaths:
��������������� Agilis sheath in right femoral vein upgraded from 8Fr in right femoral vein
��������������� 9Fr in right femoral vein
��������������� 7fr in right femoral vein
Catheters:
������������� [employer] Thermocool STSF bidirectional (F/J) - at locations of HRA, RV, LA and LV.
������������� Pentaray catheter � at locations of RA� and LA
������������� ICE catheter - at locations of RA, SVC, and RV.
������������� Decapolar Bard catheter � at locations of RA and CS
Right atrial mapping:
Patient was in incessant tachycardia. The CS showed concentric conduction. The tachycardia was closer to the proximal CS and decision was made to map the RA. CL of 210 msec.
The entrainment from the CS was out and with wobble, the entrainment was of little value.
The mapping of the right atrium was done that showed the earliest part of the tachycardia was at the atrial septum indicating possible origin of the left atrium.
While mapping right atrium patient spontaneously went into atrial fibrillation. Decision was made to proceed to the LA.
Intracardiac ECHO:
An 8-South African AcuNav intracardiac ECHO (ICE) probe was advanced through the 9-South African sheath in the femoral vein into the right atrium under fluoroscopic and ICE ultrasound image guidance and a baseline ECHO study was performed. The left atrial size
was enlarged. There was trace tricuspid regurgitation. The aortic valve was normal. There was borderline normal left ventricular size and function. There was no pericardial effusion. The AMERICA has normal velocities noted on Doppler. All the four veins
were identified and good flow noted.
During the procedure, ICE was used for monitoring of complications, guidance of trans-septal puncture, monitor the catheter position and tracking ablation lesions. No change in the pericardial space noted throughout the procedure.
Trans-septal Puncture:
Heparin was initiated and infused to maintain appropriate ACT.
A J-tipped guidewire was advanced through the 8-South African sheath in the right femoral vein into the superior vena cava under fluoroscopic and ICE guidance. The 8-South African sheath was exchanged for an Agilis sheath which was advanced into the superior vena
cava. A BRK needle was advanced until the tip was slightly behind the tip of the dilator inside the Agilis. The apparatus was withdrawn until it was in contact with the fossa ovalis. The position was adjusted based on fluoroscopy and ultrasound
images from ICE. Under fluoroscopic, hemodynamic and ICE ultrasound guidance, left atrium was cannulated by advancing the needle. Once atrial septum was cannulated, the needle was pulled back and saline injection was injected confirming the LA
access. Both the sheath and the dilator was advanced into the left atrium. The dilator with the needle was withdrawn. Blood was aspirated from the Agilis sheath and arterial blood confirmed. The sheath was flushed. Saline injection noted into the
left atrium on ICE. The pressure waveform was checked ad LA pressure measured. The penta-ray catheter was advanced in the Agilis sheath into the left pulmonary vein.
The 3-D mapping was done and then the penta-ray was switched to ablation catheter and back to penta-ray as needed.
3D Electroanatomic Mapping:
Using the Pentaray catheter advanced through Agilis sheath into the left atrium, an electroanatomic map (EAM) of the left atrium was created using [employer] Carto mapping system. The map was used for localization of catheter position and
tacking of ablation lesions. The EAM of the left atrium showed 4 pulmonary veins with all four electrically connected to the body the LA. It showed no significant low voltage areas in the LA.
The AF was coming from the right sided pulmonary veins. Though not mapped the original AT was also suspected to be coming from the right sided vein antonia with large P wave in lead I and II and earliest at the septum.
Decision was made to proceed with pulmonary vein isolation first.
Following the EAM, preparations were made for ablation.
Ablation:
Ablation # 1: Pulmonary vein Isolation:
Radiofrequency ablation was performed using an open irrigation, force-sensing 3.5mm radiofrequency ablation catheter (ThermoDivide STSF) by completing the circumferential lesions around the left and right pulmonary veins achieving pulmonary vein
isolation.
All the ablation lesions were guided by the [facility] SURPOINT module with the posterior lesions were limited to 45 mota for SURPOINT lesion index goal of 400 and anterior wall lesions were limited to SURPOINT index goal of 450.
Ablation # 2: Atrial flutter � roof dependent ablation:
The tachycardia organized and was coming from the roof and appeared roof dependent.
A series of ablations were placed connecting the LSPV to RSPV. The tachycardia had a wobble and continued to a slightly different CS activation.
Ablation # 3: Posterior wall isolation with the Box lesions set Formation:
There was a significant fractionation seen in the posterior wall and LA AF foci along with CFAE made it clear as the posterior wall is critical in maintaining the atrial fibrillation and the decision was made to isolate the posterior wall by
creating a �Box� lesions.
A set of radiofrequency ablations were placed on the floor line connecting the left inferior pulmonary vein ablation lesions to the right inferior pulmonary vein lesions rings.
The penta-ray in the posterior wall showed entrance block and the pacing from the posterior wall showed local capture with no exit from the box lesions confirming the exit block.
Ablation # 4: Posterior wall ablation:
With the box lesion created and block confirmed, the decision was made to ablate the posterior wall severing epicardial connections.
Ablation # 5: Focal left atrial tachycardia anterior wall of left atrium ablation
Using Carto mapping, the etachycardia was mapped and was noted to be coming from the anterior wall at and base of the AMERICA. The best area had good W pattern on the unipolar and earliest location was beating the P wave. �The earliest focal AT area was
ablated and additional consolidated lesiosn were placed.
Ablation # 6: Ablation of Focal atrial tachycardia at roof of the left atrium
The earliest point of the new tachycardia was at the roof area. The roof line was intact but the tachycardia was originating anterior to the line formed away from the Robert area.
The focal source of the AT was ablated.
The tachycardia changed into atrial flutter.
Ablation # 7: Mitral flutter ablation with anterior line of block formation:
While ablating the roof of the LA, patient developed into atrial flutter.� Patient's atrial flutter was mitral isthmus dependent.� Seen was made to connect the right superior pulmonary vein lesions to the annulus of the mitral isthmus.� There was
anterior scar and the focal lesion ablated on the anterior wall. Decisin was made to create a line of block from the mitral annulus to the anterior wall lesions and then to the LSPV roof. �A series of ablations were placed connecting the anterior
mitral annulus to the left superior pulmonary vein using an open irrigation, force-sensing 3.5mm radiofrequency ablation catheter ([employer] STSF). �
The tachycardia changed to a much faster tachycardia and it was 240 msec and was mapped.
Ablation # 8: Left atrial septal wall atrial tachycardia ablation
The tachycardia was at the atrial septum and ablation was performed there. It did not dissipate completely and had another tachycaradia 260 msec. It was earliest at the atrial septum indicating right sided origin.
Ablation # 9: Right atrial anterior wall tachycardia ablation
The pentaray was placed in the RA and the tachycardia was mapped. It was originating from the anterior wall of the RA adjacent to the Maria Guadalupe and inside the RAA.
Ablation was done at the focal source and another focal source took over .
Ablation # 10: Maria Guadalupe Terminalis tachycardia ablation
The new tachycardia was coming from the Maria Guadalupe mid to higher origin. The sinus node location was carefully marked. The ablation at the Maria Guadalupe terminated the tachycardia but another tachycardia was noted. It was fast 220 msec and was coming from the
LA.
Ablation # 11: The left atrial septal focal AT ablation
The new tachycardia was left atrial in origin and was mapped in the LA. The focal point was at the LA septum. The origin was ablated and the line was connected to the anterior line and the RSPV antral line.
Ablation # 12: Biatrial atrial flutter ablation
The new tachycardia was now slow and was involving both the artia. The entrainment now from the left atrial septum at Robert bundle location confirmed the flutter involving both atria.
The Robert bundle area was ablated and tachycardia terminated into sinus rhythm
Ablation # 13: Right atrial septal tachycardia ablation
The earliest location of the right sided septal location was earlier marked and was noted as the focal origin of one of the AT noted earlier. The AT was ablated with ablation at the earliest point.
At this point, patient was not having any more tachycardia and remained in sinus rhythm.
EP study and Confirmation of the PVI and bidirectional block:
Following achievement of entrance block at the pulmonary veins, pacing from the pentaray catheter in AMERICA and the pentaray in each of the four veins at 10 milliamps for 2 milliseconds showed entrance and exit block. All PVI were rechecked at the end
of the case and remained isolated with dissociated and local capture with pacing. Entrance and exit block were demonstrated in all veins.
The LA was mapped with Carto EAM in sinus rhythm confirming the line of block at the ablation lesions lines.
Sinus Node Function: normal sinus node function noted.
The AV crystal functions are deemed within normal range.
Arrhythmia Induction:
No sustained arrhythmia was induced at the end of the study.�
Procedure End
ICE study was done again that showed no epicardial accumulation. No complications noted.
Following the completion of the EP study, catheters were removed. Protamine 40 mg was given at the end of the procedure and ACT was checked repeatedly. The sheaths were removed and hemostasis achieved with VASCADE and manual compression after
acceptable ACT is achieved.
Left atrial Pressure:
Mean LA pressure was 11mmHg
Mean RA pressure was 8mmHg
Estimated Blood loss:
<10 cc
Specimens Removed:
None.
Implants / Devices:
None
Urine output:
None
Packs / Drains/ Tubes:
None
Instrument / Sponge Count Correct:
Yes
Complications of the Procedure:
None
Condition of Patient at Time of Transfer:
Hemodynamically stable with no neurological or vascular compromise.
Summary:
Successful atrial fibrillation ablation with circumferential bidirectional line of block at pulmonary vein antra (Pulmonary vein isolation), Atypical atrial flutter ablation with roof line formation, Posterior wall isolation, Mitral flutter
ablation, focal atrial tachycardia x 4, Biatrial flutter ablation
AT #2 475 ms
AT #4
--- NOTE | 2025-03-22 17:51 | PTCARENOTE ---
Rec'd pt from EP lab. Pt drowsy but arousable to voice. Tele- SR. HR 70-80s. Ekg obtained. R groin w/ old drainage noted on dsg w/ produce laborer RN at handoff. Drainage circled in black marker. Pt sating at 97% on 3L O2 NC. Activity restrictions reviewed
w/ pt and spouse and verbalizes understanding. Currently in bed; call bella w/in reach.
--- NOTE | 2025-03-22 19:28 | ITS.CL.ABL ---
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
Ablation
Procedure Report:
Date of Procedure:
03/22/2025
Indications:
Incessant tachycardia
Pre-Operative Diagnosis:
supra ventricular tachycardia
Post-Operative Diagnosis:
Atrial flutter / Atrial fibrillation / atrial tachycardia x4
Procedure Performed:
atrial fibrillation ablation with pulmonary vein isolation
Roof line formation for atypical roof dependent atrial flutter
Posterior wall isolation ablation
Focal atrial tachycardia anterior wall of left atrium ablation
Mitral flutter ablation with anterior line of bloc formation
Left atrial septal wall atrial tachycardia ablation
Right atrial septal tachycardia ablation
Right atrial anterior wall tachycardia ablation
Maria Guadalupe terminalis tachycardia ablation
Biatrial tachycardia ablation
[2025-03-22] MEDS: PACERONE 200 MG PO (19:58)
[2025-03-22] MEDS: COLCHICINE 0.6 MG PO (19:58)
[2025-03-22] MEDS: REFRESH EYE DROPS (PF) 1 DROPS OPHTH (20:40)
[2025-03-22] MEDS: DDAVP 0.3 MG PO (23:16)
[2025-03-22] MEDS: ELIQUIS 5 MG PO (23:16)
--- NOTE | 2025-03-23 01:08 | PTCARENOTE ---
Tele monitor shows NSR, HR in the 70-80's at rest. Denies any chest pain. Patient c/o right eye discomfort. Upon assessment right eye irritated, no foreign object present in eye. Bashir MANAGER BAR made aware. Orders obtained for Eye drops--see MAR for
details. Warm compressed also applied to right eye. Patient w/ some relief. Right groin figure 8s removed at 21:15 w/out any complications. Dry dressing applied. B/l dp pulses present w/ Doppler. POC ongoing, call bella within reach.
[2025-03-23 03:52] VITALS: BP 143/84
[2025-03-23 04:43] LABS: Blood Urea Nitrogen 15 mg/dl (9-20); Calcium 8.5 mg/dl (8.4-10.2); Carbon Dioxide 25 mmol/L (22-30); Chloride 107 mmol/L (98-107); Estimated Creatinine Clearance 97 ml/min; Glucose 100 mg/dl (70-99); Magnesium 1.9 mg/dl (1.6-2.3); Potassium 3.8 mmol/L (3.5-5.1); Sodium 138 mmol/L (135-145); eGFR > 60.00
[2025-03-23 07:30] VITALS: BP 142/90
--- NOTE | 2025-03-23 07:30 | W.PN.CD ---
Today's Communication / Plan
-
- Start Amiodarone 200 mg BID for 1 week then 200mg QD
- Eliquis 5 mg BID
- Colchicine 0.6 mg BID for 3 days then QD for 6 weeks. (If diarrhea then decrease to 0.3 mg QD)
- Protonix 40 mg QD x 2weeks
- Stable for discharge.
Impression / Plan
-
I/P: 75M with prostate cancer (completed XRT on Lupron), chronic back pain, prediabetes, neurogenic bladder, and severe DOMO who presented to the emergency room with a chief complaint of elevated heart rate
Atrial fibrillation
- AF -paroxysmal - noted with EP study
- CHADSVasc is 2 for age
- s/p PVI with PWI on 03/22/25
SVT
- Potpourri of arrhythmias - incessant rhythm pre0op.
- Atrial flutter - roof dependent s/p roof line and mitral flutter s/p anterior line formation
- Atrial tachycardia x4 LA anterior wall, LA and RA septal wall, RA anterior wall and Maria Guadalupe
- s/p AT ablation x4 03/22/25
- ECHO 03/21/25 - LVEF 60% - normal echo.
- Off the Dilt drip
- No arrhythmia since the ablation.
- Start Amiodarone 200 mg BID for 1 week then 200mg QD
- Eliquis 5 mg BID
- Colchicine 0.6 mg BID for 3 days then QD for 6 weeks. (If diarrhea then decrease to 0.3 mg QD)
- Protonix 40 mg QD x 2weeks
Recent foreign travel, CT PE study negative
Prostate cancer, completed XRT, on Lupron
Severe DOMO follows with Dr. Salazar
Physical Exam
Vital Signs/Labs
Vital Signs
Temp Pulse Resp BP Pulse Ox
98.4 F 81 18 143/84 98
03/23/25 03:51 03/23/25 06:00 03/23/25 03:51 03/23/25 03:52 03/23/25 03:51
03/22/25 03/23/25 03/24/25
06:59 06:59 06:59
Actual Weight 85.6 kg
03/22/25 10:29
03/23/25 04:02
Magnesium 1.9 mg/dl (1.6-2.3) 03/23/25 04:02
Physical Exam
Constitutional: No acute distress and Comfortable
EENT: Anicteric and Moist mucous membranes
Cardiovascular: Rhythm & rate is regular, Pedal edema is absent and JVD pressure is normal
Respiratory: Respiratory effort normal, Lungs clear to auscul. and Wheeze Absent
GI: Soft, Non tender and Normal bowel sounds
Neuro/Psych: Alert, Oriented, AO x 3 and Motor deficits absent
Other: Cath Site
Data Reviewed
-
Date of Service: March 23, 2025
Medical Decision Making: Reviewed Test Results, Test Interpretation and Review of Case with other Provider
EKG: Tracing Personally Visualized and interpreted
Echo: Report Reviewed by me
Labs: Labs Reviewed by me
Old Records: Reviewed
[2025-03-23] MEDS: COLCHICINE 0.6 MG PO (08:35)
[2025-03-23] MEDS: PROTONIX 40 MG PO (08:35)
[2025-03-23] MEDS: ELIQUIS 5 MG PO (08:35)
[2025-03-23] MEDS: LIORESAL 20 MG PO (08:35)
[2025-03-23] MEDS: PACERONE 200 MG PO (08:35)
--- NOTE | 2025-03-23 09:06 | CM ---
Reviewed chart. Met with and Mrs. Tay to review discharge plans. Telephone call to [facility] to check if Eliquis 5 mg po bid is in stock. [facility] has Eliquis 5 mg po bid in stock. Telephone call to [facility] to check on
co-pay for Eliquis 5 mg po bid. His first script would be $500.54 because he has a deductible that has to be met. After he met his deductible his co-pay would be $129.46 a month until he pays $2000.00 out of pocket.then he has a zero co-pay.
Reviewed co-pay information with him. He is agreeable to the co-pay. Spouse has the one free month coupon. Prior to admission he resides with his spouse in a spilt level home with three steps to enter. He has seven steps to each level. His
bedroom/full bathroom is on the upper floor. Prior to admission he was independent with ambulation and adls. He does not have any DME in the home. He has a prescription plan and uses [facility] or [facility]. Medical work-up in progress. The
discharge plan is to return home with his spouse when medically stable.
[2025-03-23 11:15] VITALS: BP 116/64
--- NOTE | 2025-03-23 11:36 | W.PN.HOSP.TC ---
Addendum entered and electronically signed by Sergei Barney MD 03/25/25 14:57:
[id number]
Original Note:
Today's Communication/Plan
-
- Start Amiodarone 200 mg BID for 1 week then 200mg QD
- Eliquis 5 mg BID
- Colchicine 0.6 mg BID for 3 days then QD for 6 weeks. (If diarrhea then decrease to 0.3 mg QD)
- Protonix 40 mg QD x 2weeks
F/u Cards, PCP outpt
F/u CBC, BMP in 1 week with pcp
Assessment / Plan
Assessment / Plan
Physical Exam
Constitutional: No acute distress and Comfortable
EENT: Anicteric and Moist mucous membranes
Cardiovascular: Rhythm & rate is regular, Pedal edema is absent and JVD pressure is normal
Respiratory: Respiratory effort normal, Lungs clear to auscul. and Wheeze Absent
GI: Soft, Non tender and Normal bowel sounds
Neuro/Psych: Alert, Oriented and AO x 3
PLAN:
# SVT
- Failed adenosine 6 mg, 12 mg and diltiazem 20 mg with heart rate 140s
-CT chest shows no pulmonary embolism
- Cardizem drip dced
- s/p AT ablation x4 03/22/25
-Cardiology consulted
-ECHO - no regional wall motion abn, no valvular disease; EF 60%
-- Start Amiodarone 200 mg BID for 1 week then 200mg QD
- Eliquis 5 mg BID
- Colchicine 0.6 mg BID for 3 days then QD for 6 weeks. (If diarrhea then decrease to 0.3 mg QD)
- Protonix 40 mg QD x 2weeks
Severe obstructive sleep apnea
- Does not use CPAP
Prostate cancer status post radiation
Chronic back pain
Prediabetes
Neurogenic bladder
Full code
DVT prophylaxis�heparin
Regular diet
More than 30 minutes spent in discharge including
Final examination of the patient
Summarizing hospital stay
Instructions for continuing care to all relevant caregivers
Preparation of discharge records, prescriptions, and referral forms
Total time spent (in minutes): 36
Anticipated Discharge: Today
Subjective/Interval History
-
Date of Service: March 23, 2025
No acute events overnight, tolerated ablation 03/23/25
Objective Data
-
Labs:
Laboratory Results
03/23/25
04:02
Sodium 138
Potassium 3.8
Chloride 107
Carbon Dioxide 25
BUN 15
Creatinine 0.7
Glucose 100 H
Calcium 8.5
Vital Signs:
Vital Signs
Temp Pulse Resp BP Pulse Ox
98.2 F 96 20 142/90 95
03/23/25 07:31 03/23/25 11:00 03/23/25 07:31 03/23/25 07:30 03/23/25 07:31
I&O
03/22/25 03/23/25 03/24/25
06:59 06:59 06:59
Intake Total 1140 / 1140 240 / 240 400 / 400
Output Total 1150 / 1150 1050 / 1050
Balance -10 / -10 -810 / -810 400 / 400
Review of Systems
-
History Source: Patient
All other systems: Not reviewed unless documented
Data Reviewed
-
CT Scan: Report Reviewed by me
Medical Tests (Nuc Med, Echo etc): Report Reviewed by me
Labs: Labs Reviewed by me
--- NOTE | 2025-03-23 11:39 | W.DS.TRANS ---
DC Summary - Vessel [facility]
-
Discharge Instructions:
Discharge Diagnosis/Procedures SVT post ablation
Diet Low Cholesterol,Low Fat,Diabetic, Carb
Controlled
Activity As tolerated
Driving Restrictions No driving for 24 hours
Blood Work cbc and bmp in 1 week with pcp
Instructions:
Stand-Alone Forms: DC Instructions- Cath/EP Lab
Changes to Home Medications: Yes
Discharge Medications:
DC Medications w/original date entered in [employer]
baclofen 20 mg tablet 20 mg PO TID 03/20/25
desmopressin 0.2 mg tablet 0.3 mg PO HS 03/20/25
amiodarone 200 mg tablet 200 mg PO BID 30 days #60 tabs 03/23/25
apixaban 5 mg tablet (Eliquis) 5 mg PO BID 30 days #60 tabs 03/23/25
colchicine 0.6 mg tablet 0.6 mg PO BID 6 weeks #84 tabs 03/23/25
pantoprazole 40 mg tablet,delayed release 40 mg PO DAILY 2 weeks #14 tabs 03/23/25
Home Medication Changes
amiodarone 200 mg tablet 200 mg PO BID 30 days #60 tabs 03/23/25
apixaban 5 mg tablet (Eliquis) 5 mg PO BID 30 days #60 tabs 03/23/25
colchicine 0.6 mg tablet 0.6 mg PO BID 6 weeks #84 tabs 03/23/25
pantoprazole 40 mg tablet,delayed release 40 mg PO DAILY 2 weeks #14 tabs 03/23/25
Pending Results: No
[2025-03-23 11:48] VITALS: BP 116/64
[2025-03-23 12:09] VITALS: BP 116/64
--- NOTE | 2025-03-23 12:35 | PTCARENOTE ---
IV and tele removed. Discharge instructions reviewed w/ pt and verbalizes understanding. Belongings collected and sent home w/ pt. Escorted via WC and staff assist to home. D/c to home.
== END 2025-03-23 13:08 | disposition home or self-care (01) | DRG 274 ==
LOC: IVU 16:36
PROVIDERS: Emergency Medicine; Internal Medicine Cardiovascular Disease; Nurse Practitioner Adult Health; ADMITTING PHYSICIAN Hospitalist; ATTENDING PHYSICIAN Internal Medicine; EMERGENCY PHYSICIAN Student in an Organized Health Care Education/Training Program; FAMILY PHYSICIAN Internal Medicine
PROC: 02K83ZZ Map Conduction Mechanism, Percutaneous Approach (ICD-10-PCS; 2025-03-22)
PROC: B24BZZ4 Ultrasonography of Heart with Aorta, Transesophageal (ICD-10-PCS; 2025-03-22)
PROC: 02583ZZ Destruction of Conduction Mechanism, Percutaneous Approach (ICD-10-PCS; 2025-03-22)
PROC: 4A023FZ Measurement of Cardiac Rhythm, Percutaneous Approach (ICD-10-PCS; 2025-03-22)
PROC: 4A0234Z Measurement of Cardiac Electrical Activity, Percutaneous Approach (ICD-10-PCS; 2025-03-22)
DX: I47.19 Other supraventricular tachycardia (principal); M54.9 Dorsalgia, unspecified; G89.29 Other chronic pain; R73.03 Prediabetes; N31.9 Neuromuscular dysfunction of bladder, unspecified; G47.33 Obstructive sleep apnea (adult) (pediatric); I48.91 Unspecified atrial fibrillation; Z79.899 Other long term (current) drug therapy; Z85.46 Personal history of malignant neoplasm of prostate; Z92.3 Personal history of irradiation; I48.4 Atypical atrial flutter
CPT/HCPCS: 71275; 80048; 80053; 83735; 84443; 85025; 85027; 85347; 93005; 93306; 93655; 93656; 93657; 96374; 96375; 96376; 99291; C1730; C1732; C1759; C1766; C1769; C1892; C1894; J0153; Q9967

== ENCOUNTER → 2025-03-28 07:32 | Outpatient (REF) | payer MEDICARE, SELFPAY ==
[2025-03-28 08:20] LABS: % Basophils 0.2 % (0-2); % Eosinophils 2.3 % (0-6); % Immature Granulocytes 0.2 % (0-0.5); % Lymphocytes 11.5 % (20.5-51.1); % Monocytes 13.8 % (1.7-9.3); Absolute Eosinophils 0.1 10^3/uL (0-0.7); Absolute Lymphocytes 0.5 10^3/uL (1.2-3.4); Absolute Monocytes 0.6 10^3/uL (0.1-0.6); Absolute Neutrophils 3.1 10^3/uL (1.4-6.5); Hematocrit 34.4 % (39.0-52.0); Hemoglobin 11.8 g/dL (13.0-18.0); Mean Corp Hgb Conc. 34.3 g/dL (33.0-37.0); Mean Corpuscular Hgb 30.9 pg (27.0-31.0); Mean Corpuscular Volume 90.1 fL (80.0-94.0); Mean Platelet Volume 11.2 fL (7.4-10.4); Nucleated Red Blood Cells % 0 % (-); Platelet Count 206 10^3/uL (130-400); Red Blood Cell Count 3.82 10^6/uL (4.70-6.10); Red Cell Dist. Width 12.4 % (11.5-14.5); White Blood Cell Count 4.3 10^3/uL (4.8-10.8)
[2025-03-28 08:22] LABS: ALT (SGPT) 14 U/L (0-50); AST (SGOT) 25 U/L (17-59); Albumin 3.9 g/dl (3.5-5.0); Alkaline Phosphatase 66 U/L (38-126); Blood Urea Nitrogen 16 mg/dl (9-20); Calcium 8.8 mg/dl (8.4-10.2); Carbon Dioxide 27 mmol/L (22-30); Chloride 98 mmol/L (98-107); Glucose 102 mg/dl (70-99); Potassium 4.8 mmol/L (3.5-5.1); Sodium 135 mmol/L (135-145); Total Bilirubin 0.5 mg/dl (0.2-1.3); Total Protein 6.3 g/dl (6.3-8.2); eGFR > 60.00
== END ==
LOC: REG 07:32
PROVIDERS: ATTENDING PHYSICIAN Internal Medicine
DX: I47.10 Supraventricular tachycardia, unspecified (principal); I48.0 Paroxysmal atrial fibrillation; Z98.890 Other specified postprocedural states; K52.0 Gastroenteritis and colitis due to radiation; C61 Malignant neoplasm of prostate; G47.33 Obstructive sleep apnea (adult) (pediatric); Z09 Encounter for follow-up examination after completed treatment for conditions other than malignant neoplasm
CPT/HCPCS: 36415; 80053; 85025

== ENCOUNTER → 2025-05-16 06:54 | Outpatient (REF) | payer MEDICARE, SELFPAY | LOC: PAVMRI 06:54 | PROVIDERS: ATTENDING PHYSICIAN Pain Medicine Interventional Pain Medicine; FAMILY PHYSICIAN Internal Medicine | DX: M54.16 Radiculopathy, lumbar region (principal) | CPT/HCPCS: 72148 ==

== ENCOUNTER → 2025-06-05 12:24 | Outpatient (REF) | payer MEDICARE, SELFPAY | LOC: DHSLP 12:24 | PROVIDERS: ATTENDING PHYSICIAN Internal Medicine; FAMILY PHYSICIAN Internal Medicine | DX: G47.33 Obstructive sleep apnea (adult) (pediatric) (principal); G47.31 Primary central sleep apnea | CPT/HCPCS: 95810 ==

== ENCOUNTER → 2025-09-12 08:16 | Outpatient (REF) | payer MEDICARE, SELFPAY | LOC: REG 08:16 | PROVIDERS: ATTENDING PHYSICIAN Urology; FAMILY PHYSICIAN Internal Medicine; OTHER PHYSICIAN Physical Medicine & Rehabilitation | DX: C61 Malignant neoplasm of prostate (principal) | CPT/HCPCS: 36415; 84153; 84403 ==

== ENCOUNTER → 2025-10-03 15:41 | Outpatient (REF) | payer MEDICARE, SELFPAY | LOC: RAD 15:41 | PROVIDERS: ATTENDING PHYSICIAN Internal Medicine; OTHER PHYSICIAN Pain Medicine Interventional Pain Medicine | DX: S83.411A Sprain of medial collateral ligament of right knee, initial encounter (principal) | CPT/HCPCS: 73564 ==

== ENCOUNTER → 2025-10-17 09:01 | Outpatient (REF) | payer MEDICARE, SELFPAY ==
[2025-10-17 10:11] LABS: Hematocrit 33.8 % (39.0-52.0); Hemoglobin 11.0 g/dL (13.0-18.0); Mean Corp Hgb Conc. 32.5 g/dL (33.0-37.0); Mean Corpuscular Volume 92.9 fL (80.0-94.0); Nucleated Red Blood Cells % 0 % (-); Platelet Count 256 10^3/uL (130-400); Red Cell Dist. Width 12.9 % (11.5-14.5)
[2025-10-17 10:33] LABS: ALT (SGPT) 14 U/L (0-50); AST (SGOT) 31 U/L (17-59); Albumin 4.2 g/dl (3.5-5.0); Alkaline Phosphatase 64 U/L (38-126); Blood Urea Nitrogen 18 mg/dl (9-20); Calcium 9.1 mg/dl (8.4-10.2); Carbon Dioxide 28 mmol/L (22-30); Chloride 102 mmol/L (98-107); Glucose 98 mg/dl (70-99); HDL Cholesterol 76 mg/dl; LDL Cholesterol, Calculated 124 mg/dl; Potassium 4.8 mmol/L (3.5-5.1); Sodium 133 mmol/L (135-145); Total Protein 6.9 g/dl (6.3-8.2); Very Low Density Lipoprotein 21 mg/dl (0-30); eGFR > 60.00
[2025-10-17 11:03] LABS: TSH 0.38 uIU/ml (0.47-4.68)
== END ==
LOC: REG 09:01
PROVIDERS: ATTENDING PHYSICIAN Internal Medicine
DX: C61 Malignant neoplasm of prostate (principal); G47.33 Obstructive sleep apnea (adult) (pediatric); I48.91 Unspecified atrial fibrillation; Z00.00 Encounter for general adult medical examination without abnormal findings; E78.5 Hyperlipidemia, unspecified
CPT/HCPCS: 36415; 80053; 80061; 84443; 85025